=== PATIENT | female | born 1925 | race Caucasian/White ===

== ENCOUNTER 2016-09-13 08:17 | Emergency (ER) | payer MEDICARE ==
[2016-09-13 08:30] VITALS: BP 114/101
--- NOTE | 2016-09-13 08:46 | UC ---
Hand/Wrist HPI - HPI Summary HPI Summary: The patient comes in today for: 1. Left hand pain: Onset: 3-4 days ago. Palliative/provocative: Nothing makes the pain better or worse. Quality: Burning, sharp Region: Left hand. Severity: 8/10 Time: Constant. 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 Previous disease: None except arthritis Previous treatment: None. Carpal tunnel syndrome: no previous diagnosis. * - History Of Current Complaint Chief Complaint: UCUpperExtremity Stated Complaint: LFT HAND PAIN Time Seen by Provider: 09/13/16 08:40 Hx Obtained From: Patient, Family/Public Health Worker - Allergies/Home Medications Allergies/Adverse Reactions: Allergies Allergy/AdvReac Type Severity Reaction Status Date / Time No Known Allergies Allergy Verified 09/13/16 08:30 PMH/Surg Hx/FS Hx/Imm Hx Previously Healthy: No - Vertigo occasionally. Cardiovascular History: Cardiac Disease - "My heart beats fast sometimes." GI/ History: Gastroesophageal Reflux - Surgical History Surgical History: Yes Surgery Procedure, Year, and Place: APPENDECTOMY,VERICOSE VEINS, HYSTERECTOMY - Family History Known Family History: Positive: Hypertension Negative: Diabetes - Social History Occupation: Retired Lives: Alone Alcohol Use: Occasionally Substance Use Type: None Smoking Status (MU): Never Smoked Tobacco - Immunization History Most Recent Influenza Vaccination: Not the 2015/2016 Season Review of Systems Constitutional: Negative Skin: Negative Eyes: Negative ENT: Negative Respiratory: Negative Cardiovascular: Negative Gastrointestinal: Negative Genitourinary: Negative All Other Systems Reviewed And Are Negative: Yes Physical Exam Triage Information Reviewed: Yes Appearance: Well-Appearing, No Pain Distress, Well-Nourished Vital Signs: Initial Vital Signs Temp 98.6 F 09/13/16 08:22 Pulse 66 09/13/16 08:22 Resp 16 09/13/16 08:22 BP 114/101 09/13/16 08:22 Pulse Ox 99 09/13/16 08:22 Vital Signs Reviewed: Yes Eyes: Positive: Conjunctiva Clear. Negative: Discharge ENT: Positive: Hearing grossly normal. Negative: Pharyngeal erythema, Nasal congestion, Nasal drainage, TM bulging, TM dull, TM red, Tonsillar swelling, Tonsillar exudate Dental: Negative: Gross Decay/Caries @, Dental Fracture @ Neck: Positive: Supple, Nontender, No Lymphadenopathy. Negative: Nuchal Rigidity Respiratory: Positive: Chest non-tender, Lungs clear, No respiratory distress, No accessory muscle use. Negative: Crackles, Wheezing Cardiovascular: Positive: RRR, No Murmur Abdomen Description: Positive: Nontender, No Organomegaly, Soft. Negative: Distended, Guarding Musculoskeletal: Positive: Strength Intact, ROM Intact, Other: - Left wrist: There is a positive Tinel's sign and +/- Phalen's sign. Good range of motion. Left elbow: No tenderness of the epicondyles or olecranon bursa. There is a full range of motion. LEft shoulder: No tenderness around the coracoid process or the biceps tendon. There is a full range of motion. There is some tenderness to palpation of the trapezius muscle. Neurological: Positive: Alert, Muscle Tone Normal Psychological: Positive: Age Appropriate Behavior, Consolable Skin: Negative: rashes, breakdown Hand/Wrist Course/Dx - Course Course Of Treatment: Patient and male family readiness support assistant told of the diagnosis of carpal tunnel syndrome. - Differential Dx/Diagnosis Provider Diagnoses: Left carpal tunnel Discharge - Discharge Plan Condition: Stable Disposition: HOME Referrals: eR Montgomery MD [Primary Care Provider] - 1 Week (Please wear the wrist splint all the time (except for bathing), until you see your primary care provider. At that time, a determination for a possible EMG can be made. ) Additional Instructions: Use pain medication as needed.
== END 2016-09-13 09:28 | disposition home or self-care (01) ==
LOC: UCCORT 08:17
DX: G56.02 Carpal tunnel syndrome, left upper limb (principal); K21.9 Gastro-esophageal reflux disease without esophagitis
CPT/HCPCS: 99213; G0463